=== PATIENT | female | born 1995 | race African-American/Black ===

== ENCOUNTER 2018-07-07 19:04 | Emergency (ER) | payer SELFPAY ==
[2018-07-07] MEDS ORDERED: Famotidine 20 MG/2 ML SDV IVPUSH ONE (19:34)
[2018-07-07] MEDS ORDERED: Ondansetron 4 MG/2 ML SDV IVPUSH ONE (19:34)
[2018-07-07] MEDS ORDERED: Sodium Chloride 0.9% 1,000 ML IV SCH (19:45)
--- NOTE | 2018-07-07 19:45 | EDM.PDOC ---
ED HPI GENERAL MEDICAL PROBLEM - General Chief Complaint: Gastrointestinal Problem Stated Complaint: WEAK AND VOMITTING Time Seen by Provider: 07/07/18 19:16 Source of Information: Reports: Patient, Family (spouse), RN Notes Reviewed - History of Present Illness INITIAL COMMENTS - FREE TEXT/NARRATIVE: 23 year old female comes in with nausea/ vomiting that started 3 to 4 days ago and continues today. No major abd or pelvic pain. LMP about 6 weeks ago so is about 2 weeks overdue, not sure if she may be . No chest pain or difficulty breathing. No hx of major know medical problems. - Related Data Allergies Allergy/AdvReac Type Severity Reaction Status Date / Time No Known Allergies Allergy Verified 07/07/18 19:17 Home Meds: Home Meds Ondansetron [Zofran ODT] 4 mg PO Q6H PRN #14 tab.dis 07/07/18 [Rx] Social & Family History - Tobacco Use Smoking Status *Q: Never Smoker - Caffeine Use Caffeine Use: Reports: None ED ROS GENERAL - Review of Systems Review Of Systems: See Below Constitutional: Denies: Fever, Chills HEENT: Denies: Throat Pain Respiratory: Denies: Shortness of Breath Cardiovascular: Denies: Chest Pain GI/Abdominal: Reports: Abdominal Pain (occasional mild cramps, no pain at this time), Decreased Appetite, Nausea, Vomiting. Denies: Diarrhea Musculoskeletal: Reports: No Symptoms Skin: Reports: No Symptoms Neurological: Reports: Dizziness (when standing, mild) ED EXAM, GI/ABD - Physical Exam Exam: See Below General Appearance: Alert Eyes: Bilateral: Normal Appearance Throat/Mouth: Other (oral mucosa mildly dry) Head: No: Facial Swelling Neck: Supple Respiratory/Chest: No Respiratory Distress, Lungs Clear, Normal Breath Sounds Cardiovascular: Regular Rate, Rhythm GI/Abdominal Exam: Soft, Non-Tender. No: Guarding, Rebound Extremities: Normal Inspection Neurological: Alert, Oriented Skin Exam: Warm, Dry Course - Vital Signs Last Recorded V/S: Last Vital Signs Temp 97.6 F 07/07/18 19:12 Pulse 76 07/07/18 19:12 Resp 20 07/07/18 19:12 BP 100/69 07/07/18 19:12 Pulse Ox 95 07/07/18 19:12 - Orders/Labs/Meds Orders: Active Orders 24 hr Category Date Time Status Sodium Chloride 0.9% [Normal Saline] 1,000 ml Med 07/07/18 19:45 Active IV ONETIME Medication Orders Sodium Chloride (Normal Saline) 1,000 mls @ 999 mls/hr IV ONETIME SHARON Last Admin: 07/07/18 19:41 Dose: 999 mls/hr Labs: Laboratory Tests 07/07/18 07/07/18 07/07/18 Range/Units 19:33 19:33 19:33 WBC 6.71 (3.98-10.04) K/mm3 RBC 5.38 H (3.98-5.22) M/mm3 Hgb 14.3 (11.2-15.7) gm/L Hct 43.4 (34.1-44.9) % MCV 80.7 (79.4-94.8) fl MCH 26.6 (25.6-32.2) pg MCHC 32.9 (32.2-35.5) g/dl RDW Std Deviation 38.8 (36.4-46.3) fL Plt Count 261 (182-369) K/mm3 MPV 10.7 (9.4-12.3) fl Neut % (Auto) 61.3 (34.0-71.1) % Lymph % (Auto) 23.1 (19.3-51.7) % [place] % (Auto) 14.6 H (4.7-12.5) % Eos % (Auto) 0.6 L (0.7-5.8) Baso % (Auto) 0.3 (0.1-1.2) % Neut # (Auto) 4.11 (1.56-6.13) K/mm3 Lymph # (Auto) 1.55 (1.18-3.74) K/mm3 [place] # (Auto) 0.98 H (0.24-0.36) K/mm3 Eos # (Auto) 0.04 (0.04-0.36) K/mm3 Baso # (Auto) 0.02 (0.01-0.08) K/mm3 Sodium 135 L (136-145) mEq/L Potassium 3.6 (3.5-5.1) mEq/L Chloride 99 (98-107) mEq/L Carbon Dioxide 24 (21-32) mEq/L Anion Gap 15.6 H (5-15) BUN 10 (7-18) mg/dL Creatinine 0.7 (0.55-1.02) mg/dL Est Cr Clr Drug Dosing 127.45 mL/min Estimated GFR (MDRD) > 60 (>60) mL/min BUN/Creatinine Ratio 14.3 (14-18) Glucose 92 (74-106) mg/dL Calcium 10.1 (8.5-10.1) mg/dL Total Bilirubin 0.4 (0.2-1.0) mg/dL AST 33 (15-37) U/L ALT 38 (14-59) U/L Alkaline Phosphatase 63 (46-116) U/L Total Protein 8.9 H (6.4-8.2) g/dl Albumin 4.1 (3.4-5.0) g/dl Globulin 4.8 gm/dL Albumin/Globulin Ratio 0.9 L (1-2) HCG, Qual Positive H (NEGATIVE) Meds: Medications Generic Name Dose Route Start Last Admin Trade Name Freq PRN Reason Stop Dose Admin Sodium Chloride 1,000 mls @ 999 mls/hr 07/07/18 19:45 07/07/18 19:41 Normal Saline IV 999 mls/hr ONETIME SHARON Administration Discontinued Medications Generic Name Dose Route Start Last Admin Trade Name Freq PRN Reason Stop Dose Admin Famotidine 20 mg 07/07/18 19:34 07/07/18 19:44 Pepcid IVPUSH 07/07/18 19:35 20 mg ONETIME ONE Administration Ondansetron HCl 4 mg 07/07/18 19:34 07/07/18 19:42 Zofran IVPUSH 07/07/18 19:35 4 mg ONETIME ONE Administration Departure - Departure Time of Disposition: 20:32 Disposition: Home, Self-Care 01 Condition: Fair Clinical Impression: First trimester Vomiting Qualifiers: Vomiting type: vomiting of fecal matter Nausea presence: with nausea Qualified Code(s): R11.13 - Vomiting of fecal matter - Discharge Information Prescriptions: Ondansetron [Zofran ODT] 4 mg PO Q6H PRN #14 tab.dis PRN Reason: Nausea/Vomiting Referrals: PCP,None [Primary Care Provider] - Forms: ED Department Discharge Additional Instructions: your serum test was positive. Based on your LMP you are likely about 4 weeks . Clear liquids in the morning for the first hour or so and than try eating careful bland diet after that small amounts at a time as tolerated. You may take zofran nausea medicine once or twice daily if needed for severe nausea or vomiting. See one of our OB providers at our [facility], call [phone] for appointment. - My Orders Last 24 Hours: My Active Orders 07/07/18 19:45 Sodium Chloride 0.9% [Normal Saline] 1,000 ml IV ONETIME - Assessment/Plan Last 24 Hours: My Active Orders 07/07/18 19:45 Sodium Chloride 0.9% [Normal Saline] 1,000 ml IV ONETIME
== END 2018-07-07 21:09 | disposition home or self-care (01) ==
LOC: JD.ED 19:04
DX: O21.9 Vomiting of pregnancy, unspecified (principal)
CPT/HCPCS: 36415; 80053; 84703; 85025; 96361; 96374; 96375; 99284; J2405; J3490; J7040; 99283

== ENCOUNTER 2018-07-11 11:16 | Emergency (ER) | payer SELFPAY ==
[2018-07-11] MEDS ORDERED: Lactated Ringers 1,000 ML IV ONE ×2 (13:16→15:04)
[2018-07-11] MEDS ORDERED: Ondansetron 4 MG/2 ML SDV IVPUSH ONE (13:16)
[2018-07-11] MEDS ORDERED: Sodium Chloride 0.9% 10 ML Syringe FLUSH PRN (13:16)
--- NOTE | 2018-07-11 14:26 | EDM.PDOC ---
ED HPI GENERAL MEDICAL PROBLEM - General Chief Complaint: Gastrointestinal Problem Stated Complaint: VOMMITING WAS SEEN HERE ON SUNDAY Time Seen by Provider: 07/11/18 13:00 Source of Information: Reports: Patient History Limitations: Reports: No Limitations - History of Present Illness INITIAL COMMENTS - FREE TEXT/NARRATIVE: 23-year-old female presents for evaluation and treatment of nauseas and vomiting. Patient was seen in the ED just 4 days ago and found to be . Estimates she is about 4 weeks . She has not seen OB for this yet. She was given fluids and Zofran. She has been taking the Zofran and her last dose was last night. She states that she has had constant nausea and vomiting. No diarrhea, abdominal pain, abdominal cramping or spotting. Reports decreased urinary output but denies any dysuria. Abdomen Pain Score (Numeric/FACES): 5 - Related Data Allergies Allergy/AdvReac Type Severity Reaction Status Date / Time No Known Allergies Allergy Verified 07/11/18 12:28 Home Meds: Home Meds Ondansetron [Zofran ODT] 4 mg PO Q6H PRN #14 tab.dis 07/07/18 [Rx] Ondansetron [Zofran ODT] 4 mg PO Q6HR PRN #15 tab.dis 07/11/18 [Rx] Past Medical History - Past Health History Medical/Surgical History: Denies Medical/Surgical History HEENT History: Reports: None Cardiovascular History: Reports: None Respiratory History: Reports: None Gastrointestinal History: Reports: None Genitourinary History: Reports: None [employer] History: Reports: None Musculoskeletal History: Reports: None Neurological History: Reports: None Psychiatric History: Reports: None Endocrine/Metabolic History: Reports: None Hematologic History: Reports: None Immunologic History: Reports: None Oncologic (Cancer) History: Reports: None Dermatologic History: Reports: None - Infectious Disease History Infectious Disease History: Reports: None Social & Family History - Family History Family Medical History: Noncontributory - Tobacco Use Smoking Status *Q: Never Smoker - Caffeine Use Caffeine Use: Reports: None - Recreational Drug Use Recreational Drug Use: No ED ROS GENERAL - Review of Systems Review Of Systems: See Below Constitutional: Denies: Fever, Chills GI/Abdominal: Reports: Nausea, Vomiting. Denies: Abdominal Pain, Diarrhea : Reports: Other (no pelvic cramping or spotting). Denies: Dysuria Musculoskeletal: Denies: Back Pain ED EXAM - Physical Exam Exam: See Below Exam Limited By: No Limitations General Appearance: Alert, WD/WN, Mild Distress, Thin Throat/Mouth: Normal Inspection Respiratory/Chest: No Respiratory Distress, Lungs Clear, Normal Breath Sounds Cardiovascular: Normal Peripheral Pulses, Regular Rate, Rhythm, No Murmur GI/Abdominal Exam: Normal Bowel Sounds, Soft, Non-Tender Neurological: Alert, Oriented, Normal Cognition Psychiatric: Normal Affect, Normal Mood Skin Exam: Warm, Dry, Normal Color Course - Vital Signs Last Recorded V/S: Last Vital Signs Temp 99.8 F 07/11/18 12:30 Pulse 98 07/11/18 12:30 Resp 16 07/11/18 12:30 BP 99/64 07/11/18 12:30 Pulse Ox 98 07/11/18 12:30 - Orders/Labs/Meds Orders: Active Orders 24 hr Category Date Time Status Peripheral IV Care [RC] . DIRECTED Care 07/11/18 13:16 Active Sodium Chloride 0.9% [Saline Flush] Med 07/11/18 13:16 Active 10 ml FLUSH ASDIRECTED PRN Peripheral IV Insertion Adult [OM.PC] Routine Oth 07/11/18 13:16 Ordered Medication Orders Sodium Chloride (Saline Flush) 10 ml FLUSH ASDIRECTED PRN PRN Reason: Keep Vein Open Last Admin: 07/11/18 13:59 Dose: 10 ml Labs: Laboratory Tests 07/11/18 07/11/18 07/11/18 Range/Units 13:45 13:45 16:40 WBC 6.58 (3.98-10.04) K/mm3 RBC 5.41 H (3.98-5.22) M/mm3 Hgb 14.9 (11.2-15.7) gm/L Hct 42.8 (34.1-44.9) % MCV 79.1 L (79.4-94.8) fl MCH 27.5 (25.6-32.2) pg MCHC 34.8 (32.2-35.5) g/dl RDW Std Deviation 36.9 (36.4-46.3) fL Plt Count 243 (182-369) K/mm3 MPV 11.2 (9.4-12.3) fl Neut % (Auto) 61.7 (34.0-71.1) % Lymph % (Auto) 27.4 (19.3-51.7) % [place] % (Auto) 10.3 (4.7-12.5) % Eos % (Auto) 0.3 L (0.7-5.8) Baso % (Auto) 0.3 (0.1-1.2) % Neut # (Auto) 4.06 (1.56-6.13) K/mm3 Lymph # (Auto) 1.80 (1.18-3.74) K/mm3 [place] # (Auto) 0.68 H (0.24-0.36) K/mm3 Eos # (Auto) 0.02 L (0.04-0.36) K/mm3 Baso # (Auto) 0.02 (0.01-0.08) K/mm3 Sodium 136 (136-145) mEq/L Potassium 3.6 (3.5-5.1) mEq/L Chloride 100 (98-107) mEq/L Carbon Dioxide 26 (21-32) mEq/L Anion Gap 13.6 (5-15) BUN 7 (7-18) mg/dL Creatinine 0.7 (0.55-1.02) mg/dL Est Cr Clr Drug Dosing 119.01 mL/min Estimated GFR (MDRD) > 60 (>60) mL/min BUN/Creatinine Ratio 10.0 L (14-18) Glucose 78 (74-106) mg/dL Calcium 10.0 (8.5-10.1) mg/dL Magnesium 1.8 (1.8-2.4) mg/dl Total Bilirubin 0.5 (0.2-1.0) mg/dL AST 28 (15-37) U/L ALT 35 (14-59) U/L Alkaline Phosphatase 58 (46-116) U/L Total Protein 8.7 H (6.4-8.2) g/dl Albumin 3.9 (3.4-5.0) g/dl Globulin 4.8 gm/dL Albumin/Globulin Ratio 0.8 L (1-2) HCG, Quant 529128.0 mIU/mL Urine Color Dark yellow (Yellow) Urine Appearance Slt cloudy H (Clear) Urine pH 7.0 (5.0-8.0) Ur Specific [place] 1.020 (1.005-1.030) Urine Protein 2+ H (Negative) Urine Glucose (UA) Negative (Negative) Urine Ketones 4+ H (Negative) Urine Occult Blood Negative (Negative) Urine Nitrite Negative (Negative) Urine Bilirubin 1+ H (Negative) Urine Urobilinogen 0.2 (0.2-1.0) Ur Leukocyte Esterase 1+ H (Negative) Urine RBC 0-5 (0-5) /hpf Urine WBC 10-20 H (0-5) /hpf Ur Squamous Epith Cells 10-20 H (0-5) /hpf Amorphous Sediment Moderate H (NOT SEEN) /hpf Urine Bacteria Few (FEW) /hpf Urine Mucus Many H (FEW) /hpf Meds: Medications Generic Name Dose Route Start Last Admin Trade Name Freq PRN Reason Stop Dose Admin Sodium Chloride 10 ml 07/11/18 13:16 07/11/18 13:59 Saline Flush FLUSH 10 ml ASDIRECTED PRN Administration Keep Vein Open Discontinued Medications Generic Name Dose Route Start Last Admin Trade Name Freq PRN Reason Stop Dose Admin Diphenhydramine HCl 25 mg 07/11/18 15:04 07/11/18 15:12 Benadryl IVPUSH 07/11/18 15:05 25 mg ONETIME ONE Administration Lactated Ringer's 1,000 mls @ 999 mls/hr 07/11/18 13:16 07/11/18 13:59 Ringers, Lactated IV 07/11/18 14:16 999 mls/hr .BOLUS ONE Administration Lactated Ringer's 1,000 mls @ 999 mls/hr 07/11/18 15:04 07/11/18 15:11 Ringers, Lactated IV 07/11/18 16:04 999 mls/hr .BOLUS ONE Administration Metoclopramide HCl 5 mg 07/11/18 15:04 07/11/18 15:12 Reglan IVPUSH 07/11/18 15:05 5 mg ONETIME ONE Administration Ondansetron HCl 4 mg 07/11/18 13:16 07/11/18 14:00 Zofran IVPUSH 07/11/18 13:17 4 mg ONETIME ONE Administration - Re-Assessments/Exams Free Text/Narrative Re-Assessment/Exam: 07/11/18 16:15 Received 2 liters of fluid. Nausea and vomiting controlled with IV medication. Will send home with doxylamine and zofran. Recommend follow-up with ob for further management. Discharge instructions as documented. Departure - Departure Time of Disposition: 16:29 Disposition: Home, Self-Care 01 Condition: Fair Clinical Impression: First trimester , Hyperemesis gravidarum - Discharge Information *PRESCRIPTION DRUG MONITORING PROGRAM REVIEWED*: No *COPY OF PRESCRIPTION DRUG MONITORING REPORT IN PATIENT ELIZA: No Prescriptions: Ondansetron [Zofran ODT] 4 mg PO Q6HR PRN #15 tab.dis PRN Reason: Nausea Instructions: Hyperemesis Gravidarum Referrals: PCP,None [Primary Care Provider] - Anam Salvador MD [Physician] - Forms: ED Department Discharge Additional Instructions: Fill the doxylamine prescription at [facility] as this medication is compounded specially for you. They are located in the [facility]. Take 1 cap at hour of sleep. May increase to three times a day as needed. Take the zofran 1 tab sublingual every 6-8 hours prn nausea. Drink plenty of fluids, small frequent sips of water, gatorade or powerade. Follow-up with Ob this week or next week. Recommend Dr. Salvador at the [facility]. Call [phone] to schedule with him. Please return to the ER should your symptoms change or worsen. - My Orders Last 24 Hours: My Active Orders 07/11/18 13:16 Peripheral IV Care [RC] . DIRECTED Sodium Chloride 0.9% [Saline Flush] 10 ml FLUSH ASDIRECTED PRN Peripheral IV Insertion Adult [OM.PC] Routine - Assessment/Plan Last 24 Hours: My Active Orders 07/11/18 13:16 Peripheral IV Care [RC] . DIRECTED Sodium Chloride 0.9% [Saline Flush] 10 ml FLUSH ASDIRECTED PRN Peripheral IV Insertion Adult [OM.PC] Routine
[2018-07-11] MEDS ORDERED: diphenhydrAMINE 50 MG/ML SDV IVPUSH ONE (15:04)
[2018-07-11] MEDS ORDERED: Metoclopramide 10 MG/2 ML SDV IVPUSH ONE (15:04)
== END 2018-07-11 16:40 | disposition home or self-care (01) ==
LOC: JD.ED 11:16
DX: O21.0 Mild hyperemesis gravidarum (principal); Z3A.01 Less than 8 weeks gestation of pregnancy
CPT/HCPCS: 36415; 80053; 81001; 83735; 84702; 85025; 96361; 96374; 96375; 99283; J1200; J2405; J2765; J7120; 99284